=== PATIENT | female | born 1980 | race Caucasian/White ===

== ENCOUNTER 2016-06-22 20:08 | Emergency (ER) | payer OTHER ==
[2016-06-22 21:26] VITALS: RESP 18; TEMP 97.6
--- NOTE | 2016-06-22 23:25 | DI ---
XR L-SPINE 2-3 VW,06/22/2016 8:24 PM: Clinical History: Back pain Previous Exam: None at this facility. Findings: AP and lateral views of the lumbar spine are obtained, and demonstrate anatomic alignment without fra ctures. Vertebral body height is preserved. There are multiple Schmorl's nodes seen throughout the lucy mbar spine. A nonobstructive bowel gas pattern is seen. No pathologic calcifications are seen. Impression: Normal lumbar spine.
--- NOTE | 2016-06-23 06:06 | PDOC ---
Back Pain / Injury HPI - General Chief Complaint: Neck / Back Complaint Stated Complaint: LOWER BACK PAIN Date Seen by Provider: 06/22/16 Time Seen by Provider: 20:15 Source: Patient Exam Limitations: POSITIVE: No limitations Nurse's Notes Reviewed & Considered: Yes - History of Present Illness Initial Comments: The patient is a 35-year-old female. 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 No falls or direct trauma. Patient states that she has a history of "back problems since I was 20". No GI or symptoms. No paresthesia or sensory or motor symptoms. 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) Severity: Moderate Quality: REPORTS: "Pain" Context: REPORTS: Lifting, Bending Location at Time of Onset: REPORTS: Work Modifying Factors: improves with: Movement Associated Symptoms: REPORTS: Back pain Similar Symptoms Previously: Yes Recent Care Received: REPORTS: Denies Any Prior Injuries Related to Current Complaint?: No - Patient Home Medications Home Medications: Home Medications NK [No Home Medications Reported] 08/14/15 - Patient Allergies Allergies/Adverse Reactions: Allergies Allergy/AdvReac Type Severity Reaction Status Date / Time No Known Allergies Allergy Verified 06/22/16 20:12 Past Medical History - heen HEENT History: Denies History Cardiovascular History: Denies History Respiratory History: Denies History Gastrointestinal History: Denies History Genitourinary History: Denies History Endocrine History: Denies History Musculoskeletal History: Denies History Prosthesis or Implant: No Neurological History: Denies History Blood Disorders: Denies History Psychiatric History: Denies History History of Sexually Transmitted Diseases: No Female Reproductive History: Denies History Obstetrical History: Denies History Cancer History: Denies History In Past Year Been Physically Harmed or Verbally Threatened: No History of MDRO: No History of Other Communicable Diseases: No Tobacco Use: Current Every Day Smoker Alcohol Use: Occasionally Substance Use Type: None Previous Surgical History: Yes Type / Date of Surgery: TUBAL LIGATION Anesthesia Reactions: No Malignant Hyperthermia: No Significant Family History: No pertinent family hx Past Medical History Reviewed: Reviewed - No Changes ROS - Limitations ROS Limitations: No Limitations Constitution: REPORTS: Denies Symptoms Cardiovascular: REPORTS: Denies Cardiac Symptoms Respiratory: REPORTS: Denies Resp Symptoms Neurological: REPORTS: Denies Neuro Symptoms Gastrointestinal: REPORTS: Denies GI Symptoms Endocrine: REPORTS: Denies Symptoms Musculoskeletal: REPORTS: Back Pain, Recent Injury (As above) Genitourinary: REPORTS: Denies Symptoms Eyes: REPORTS: Denies Symptoms ENT: REPORTS: Denies Symptoms Skin: REPORTS: Denies Skin Symptoms Lympathic: REPORTS: Denies Lympathic Symptoms Immunologic: POSITIVE: Denies Symptoms Psychiatric: POSITIVE: Denies Psych Symptoms Back Physical Assessment - General Appearance General Appearance: REPORTS: Alert, Cooperative, No Evidence of Trauma, Mild Distress - Neck Neck: POSITIVE: Non Tender, Painless ROM, Trachea Midline, Nexus Criteria Negative - Respiratory / CVS Respiratory / CVS: POSITIVE: Chest Non Tender, No Ecchymosis, Breath Sounds Normal, No Respiratory Distress, Heart Sounds Normal, Regular Rate/Rhythm - Abdomen Abdomen: Soft: (All Quadrants), Normal Bowel Sounds: (All Quadrants), Denies Tenderness: (All Quadrants), No Splenomegaly: (All Quadrants), No Hepatomegaly: (All Quadrants), No Guarding: (All Quadrants), No Rebound: (All Quadrants), No Palpable Pulse: (All Quadrants), No Palpabale Mass: (All Quadrants), No Distention: (All Quadrants), No Rigidity: (All Quadrants) - Back Back: REPORTS: No CVA Tenderness, No Vertebral Tenderness, Limited ROM, See Diagram. DENIES: Non Tender (Discomfort on direct palpation paralumbar musculature bilaterally), Painless ROM (Discomfort on flexion and torsion), Vertebral Pt. 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, Motor Normal, Sensation Normal, Mood Appropriate, Affect Appropriate, Reflexes Normal Images - Complete Complete: 1 - Discomfort on direct palpation Back Progress - Results Reviewed by me Xrays/CTs/US Reviewed: Yes Discussed with Radiologist: Yes Radiology Findings: X-ray lumbosacral spine normal - Patient's Progress Pain Medication Addressed: POSITIVE: Yes (Recommended Advil or Tylenol) School/Work Release Addressed: POSITIVE: Yes (May return to work; no lifting over 10 pounds for 2 or 3 days) Re-Examine Time: 20:40 Status: POSITIVE: Unchanged - Consult Counseled: POSITIVE: Patient, RE: Radiology Results, RE: DX, RE: Need for F/U Patient Care Time - Estimated PCT Patient Care Time (In Minutes): 23 Vital Signs - VS Reviewed Vital Signs Reviewed: Yes Discharge Clinical Impression: Low back strain Discharge Disposition: Discharged to Home Condition: Stable Patient Instructions Given at Discharge: Low Back Strain (ED) Additional Instructions: Rest for one day. Warm moist compresses to lower back. Advil or Tylenol for discomfort. Follow-up with your primary care provider. Return here as necessary. Follow Up With: NONE,NONE [Primary Care Provider] - (Instructions as above. Follow-up with your primary care provider. Return here as necessary.)
== END 2016-06-22 20:57 | disposition home or self-care (01) ==
LOC: ER 20:08
DX: S39.012A Strain of muscle, fascia and tendon of lower back, initial encounter (principal); X50.0XXA Overexertion from strenuous movement or load, initial encounter; Y92.238 Other place in hospital as the place of occurrence of the external cause; Y99.0 Civilian activity done for income or pay
CPT/HCPCS: 72100; 99282

== ENCOUNTER → 2016-08-11 | Outpatient (CLI) | payer OTHER ==
--- NOTE | 2016-08-11 11:31 | DI ---
LUMBAR SPINE SERIES, 08/11/2016 9:23 AM: Clinical History: Lumbar back pain. Previous Exam: 06/22/2016. Upright lateral flexion and extension views are submitted. The vertebral bodies are of normal height and size. Mild L5-S1 disc space narrowing is present. Posterior alignment is normal. There is no inst ability noted with flexion and extension maneuvers. Readin. Chronic disc space narrowing is present at L5-S1. 2. There is no instability demonstrated with flexion and extension maneuvers.
== END ==
LOC: ORTHO 09:35
PROVIDERS: ATTEND Physician Assistant
DX: S39.012A Strain of muscle, fascia and tendon of lower back, initial encounter (principal); M54.16 Radiculopathy, lumbar region; M48.06 Spinal stenosis, lumbar region; X50.0XXA Overexertion from strenuous movement or load, initial encounter; Y93.89 Activity, other specified; Y92.234 Operating room of hospital as the place of occurrence of the external cause; Y99.0 Civilian activity done for income or pay
CPT/HCPCS: 72100

== ENCOUNTER → 2016-08-19 | Outpatient (CLI) | payer OTHER ==
--- NOTE | 2016-08-20 18:09 | DI ---
MRI LUMBAR SPINE SCAN WITHOUT IV CONTRAST, 08/19/2016 10:55 AM: Clinical History: Lumbar radiculopathy. Previous Exam: None. Technique: Sagittal and axial T2 weighted; sagittal T1 weighted and T2 STIR; and axial PD. The vertebral bodies are of normal height and size. There is mild L3-4 disc space narrowing. The L3-4 through L5-S1 disc spaces show desiccation change. The remaining lumbar disc spaces are of normal he ight and signal pattern. The cord terminates at T12. The conus medullaris is normal. The disc spaces from T10-11 through L2-3 are normal. L3-4 through L5-S1 disc spaces have very minimal bulging but not herniated discs without canal or neural foraminal stenosis. There is a midline disc annulus tear at L4-5. Readin. There are bulging but not herniated discs without canal or neural foraminal stenosis from L3-4 th rough L5-S1 with a midline disc annulus tear at L4-5. 2. The disc spaces from T10-11 through L2-3 are normal.
== END ==
LOC: MRI 10:49
PROVIDERS: ATTEND Physician Assistant
DX: M54.16 Radiculopathy, lumbar region (principal); M47.816 Spondylosis without myelopathy or radiculopathy, lumbar region
CPT/HCPCS: 72148

== ENCOUNTER 2016-09-07 07:37 | Day surgery (SDC) | payer BC ==
[~2016-09-07 07:37] MED LIST: BUPivacaine Inj 0.25% PF - 10ml vial IV ONE; DEXAMETHASONE PF 10 MG/1 ML VIAL IM ONE; Iopamidol Inj 61% 50 ML VIAL INTRATHEC ONE
--- NOTE | 2016-09-07 08:35 | GEN.OPNOTE ---
Transforaminal DEEPAK Procedure: Transforaminal Epidural Steriod Injection Procedure Code - Neurosurgery: 86052.50 : Lumbar Transforaminal Epidural ( Bilateral) Preoperative Diagnosis: Lumbar Degenerative Disc Disease Postoperative Diagnosis: same -: Consent: Rationale for procedure, nature of procedure, possible risks and benefits were discussed with the patient. Risks including allergic reaction to medications, known effects of steroid medications including transient elevation in blood sugar with aggravation of pre-existing diabetes and remote risk of aseptic necrosis of the hip. Pain at the injection site, inadvertent dural puncture with resultant in CSF leak and headache possibly requiring further treatment. Infection or bleeding with potential risk of neurologic injury with weakness, paralysis or were all reviewed with the patient who wished to proceed. Anesthesia, sedation: No intravenous access or sedation was used. Physiologic monitoring of pulse and oxygen saturation was utilized. Procedure: The patient was placed prone on the operating room table, prepped with Chloraprep and sterilely draped. The skin was anesthetized with 1% Buffered Xylocaine. Under fluoroscopic control a 22-gauge Touhy needle was advanced into the area of the Kambin's triangle at the L34 level. Imaging confirmation of needle placement in the posterior, inferior and lateral quadrant of the foramen was obtained. Omnipaque was injected under real-time fluoroscopy demonstrating and epidurogram. Following this 2 ml of a mixture of dexamethasone (10mg/ml) and 1% ropivacaine was injected. AP and lateral images of the final needle placement was obtained. The needle was removed and the patient returned to the post procedure recovery room where they were monitored for any side effects. The same was done on the opposite side. Pain assessment: Preprocedure pain []/10, post procedure pain []/10. Discharge instructions: Patient was given a pain log to be filled out and returned. A delayed response to the steroids of 2-5 days was discussed.
[2016-09-07 08:40] VITALS: RESP 16
[2016-09-07 09:25] VITALS: TEMP 97.3
== END 2016-09-07 08:38 | disposition home or self-care (01) ==
LOC: SDSC 07:37
PROVIDERS: ATTEND Pain Medicine Interventional Pain Medicine
DX: M51.36 Other intervertebral disc degeneration, lumbar region (principal)
CPT/HCPCS: 64483; 76000; J1100; S0020